=== PATIENT | male | born 1975 | race African-American/Black ===

== ENCOUNTER 2025-07-22 14:31 | Emergency (ER) | payer MEDICAID ==
[~2025-07-22] VITALS: Ht 177.8 cm; Wt 87.0 kg
[~2025-07-22 14:31] MED LIST: AMLO10TA80 PO; ATOR20TA65 PO; LOSA50TA41 PO; METF-414 PO; insulin regular; lantus
[2025-07-22 14:39] VITALS: BP 160/82; PULSE 74; RESP 16; TEMP 98.9; O2SAT 98
[2025-07-22 17:55] LABS: BASOPHILS % 1.1 % (0.0-2.0); EOSINOPHILS % 1.0 % (0.0-5.0); HEMATOCRIT. 45.4 % (42.0-52.0); HEMOGLOBIN. 14.9 g/dL (14.0-18.0); LYMPHOCYTES % 37.4 % (20.0-50.0); MEAN PLATELET VOLUME 8.4 fl (7.4-10.4); MONOCYTES % 4.9 % (2.0-8.0); NEUTROPHILS % 55.6 % (40.0-76.0); PLATELET 215 x1000/uL (130-400); RED BLOOD CELL COUNT 4.99 mill/uL (4.7-6.1); RED CELL DISTRIBUTION WIDTH 14.7 % (11.6-14.6)
[2025-07-22 18:31] LABS: CREATININE 1.0 mg/dL (0.6-1.3); UREA NITROGEN BLOOD 7 mg/dL (9-23)
[2025-07-22] MEDS ORDERED: INSU100V3 SUBCUT (20:07)
[2025-07-22] MEDS ORDERED: LANTUSUD SUBCUT (20:07)
== END 2025-07-22 20:20 | disposition home or self-care (01) ==
LOC: ER 14:31
DX: R53.1 Weakness (principal); E78.00 Pure hypercholesterolemia, unspecified; I10 Essential (primary) hypertension; E11.9 Type 2 diabetes mellitus without complications; Z79.899 Other long term (current) drug therapy
CPT/HCPCS: 36415; 80048; 83605; 85025; 99283